=== PATIENT | female | born 1995 | race Two or more races ===

== ENCOUNTER 2017-06-06 12:41 | Emergency (ER) | payer OTHER ==
[~2017-06-06] VITALS: Ht 154.9 cm; Wt 90.7 kg
[2017-06-06 12:41] VITALS: BP 138/93
== END 2017-06-06 14:18 | disposition home or self-care (01) ==
LOC: ER 12:43
DX: J06.9 Acute upper respiratory infection, unspecified (principal)
CPT/HCPCS: 71010; 99283; A4606; Z7610